=== PATIENT | male | born 1955 | race Asian ===

== ENCOUNTER → 2016-09-29 | Outpatient (CLI) | payer OTHER ==
[~2016-09-29] MED LIST: AMLO5TAB4 PO; ASPI-515 PO; VITAMIN B-12 PO
== END | disposition home or self-care (01) ==
LOC: CFH 10:23
PROVIDERS: ATTEND Urology
DX: N20.0 Calculus of kidney (principal)
CPT/HCPCS: 74000

== ENCOUNTER 2016-10-29 14:34 | Emergency (ER) | payer OTHER ==
[~2016-10-29] VITALS: Ht 157.5 cm; Wt 51.3 kg
[2016-10-29] MEDS ORDERED: SODIUM CHLORIDE 0.9% 1,000ML IV ONE (15:30)
[2016-10-29] MEDS ORDERED: SODIUM CHLORIDE FLUSH 10ML SYR IVF ONE (15:30)
[2016-10-29] MEDS ORDERED: ONDANSETRON 2MG/ML, 2ML IVPush ONE (15:30)
[2016-10-29 16:03] LABS: HEMATOCRIT 47.2 % (39.2-51.8); HEMOGLOBIN 15.9 g/dL (13.7-18.0); WHITE BLOOD COUNT 11.2 x10^3/uL (3.4-10)
[2016-10-29] MEDS ORDERED: ONDANSETRON 2MG/ML, 2ML ONE (16:09)
[2016-10-29 16:14] LABS: BLOOD UREA NITROGEN 16 mg/dL (7-18)
[2016-10-29 16:18] LABS: ASPARTATE AMINO TRANSFERASE 17 U/L (15-37)
[2016-10-29] MEDS ORDERED: morphine SULFATE 10 MG/ML, 1ML IVPush ONE (16:30)
[2016-10-29] MEDS ORDERED: MORPHINE SULFATE 4 MG/ML, 1ML ONE (16:33)
[2016-10-29 17:28] VITALS: BP 137/78
== END 2016-10-29 18:33 | disposition home or self-care (01) ==
LOC: ED 15:38
DX: N20.1 Calculus of ureter (principal)
CPT/HCPCS: 36415; 74000; 80053; 81001; 83690; 85025; 96361; 96374; 96375; 99285; J2270; J2405; J7030

== ENCOUNTER → 2016-11-09 | Outpatient (CLI) | payer OTHER | END | disposition home or self-care (01) | LOC: CFH 10:10 | PROVIDERS: ATTEND Urology | DX: N20.0 Calculus of kidney (principal) | CPT/HCPCS: 74000 ==

== ENCOUNTER → 2017-01-10 | Outpatient (CLI) | payer OTHER | END | disposition home or self-care (01) | LOC: CFH 12:44 | PROVIDERS: ATTEND Urology | DX: N20.1 Calculus of ureter (principal) | CPT/HCPCS: 74000 ==